=== PATIENT | male | born 1960 | race Caucasian/White ===

== ENCOUNTER 2016-10-03 17:55 | Emergency (ER) | payer OTHER ==
[2016-10-03 18:22] VITALS: TEMP 98.1
[2016-10-03] MEDS ORDERED: LIDOCAINE VISCOUS 2% 15 ML CUP MUCOUS MEM STA (19:01)
[2016-10-03] MEDS ORDERED: HYDROmorphone 2 MG/ML 1 ML SYRINGE IM STA (19:01)
--- NOTE | 2016-10-03 19:07 | ED ---
General Adult HPI - General Chief complaint: Skin/Abscess/Foreign Body Stated complaint: hemorrhoids Time Seen by Provider: 10/03/16 18:38 Source: patient Mode of arrival: wheelchair Limitations: no limitations - History of Present Illness Initial comments: 56-year-old male patient presents to emergency department today for evaluation of hemorrhoids. Patient states that he has had hemorrhoids in the past however his symptoms worsen significantly on . Patient states that he has had alternate constipation and diarrhea as her result of his treatment for lung cancer. The patient states that he has been doing sitz bath and using Preparation H without relief of symptoms. Patient also takes oxycodone and acetaminophen without relief of pain. Patient denies any bleeding from hemorrhoids. He denies any fever, chills, abdominal pain, nausea, vomiting, hematuria, dysuria, urinary frequency or urgency. Patient is currently receiving obdivo treatment for lung cancer last dose was 09/22/2016. - Related Data Home Medications Medication Instructions Recorded Confirmed Acetaminophen Tab [Tylenol Tab] 1,000 mg PO Q8H PRN 10/03/16 10/03/16 Dexamethasone 4 mg PO BID 10/03/16 10/03/16 Docusate [Colace] 100 mg PO BID 10/03/16 10/03/16 Folic Acid 1 mg PO DAILY 10/03/16 10/03/16 Gabapentin [Neurontin] 100 mg PO TID 10/03/16 10/03/16 Memantine [Namenda] 10 mg PO BID 10/03/16 10/03/16 Morphine Sulfate ER [Ms Contin 100 mg PO Q12HR 10/03/16 10/03/16 100Mg] Multivitamins, Thera [Multivitamin 1 tab PO Q48H 10/03/16 10/03/16 (formulary)] Ondansetron [Zofran ODT] 4 mg PO Q8HR PRN 10/03/16 10/03/16 Prochlorperazine [Compazine] 10 mg PO Q6H PRN 10/03/16 10/03/16 Varenicline [Chantix] 1 mg PO BID 10/03/16 10/03/16 buPROPion XL [Wellbutrin Xl] 300 mg PO DAILY 10/03/16 10/03/16 oxyCODONE HCL 20 mg PO Q4HR PRN 10/03/16 10/03/16 Previous Rx's Medication Instructions Recorded Hydrocortisone [Anusol-Hc] 1 applic RECTAL TID #30 gm 10/03/16 Polyethylene Glycol 3350 [Miralax] 17 gm PO DAILY #255 gm 10/03/16 Allergies Allergy/AdvReac Type Severity Reaction Status Date / Time No Known Allergies Allergy Verified 10/03/16 18:22 Review of Systems ROS Statement: Those systems with pertinent positive or pertinent negative responses have been documented in the HPI. ROS Other: All systems not noted in ROS Statement are negative. Past Medical History Past Medical History: Cancer Additional Past Medical History / Comment(s): hemorrhoids, lung cancer, chronic constipation History of Any Multi-Drug Resistant Organisms: None Reported Past Surgical History: Orthopedic Surgery Past Psychological History: No Psychological Hx Reported Smoking Status: Current every day smoker Past Alcohol Use History: None Reported Past Drug Use History: None Reported General Exam Limitations: no limitations General appearance: alert, in no apparent distress Eye exam: Present: normal appearance, PERRL, EOMI. Absent: scleral icterus, conjunctival injection, periorbital swelling ENT exam: Present: normal exam, mucous membranes moist Neck exam: Present: normal inspection. Absent: tenderness, meningismus, lymphadenopathy Respiratory exam: Present: decreased breath sounds. Absent: respiratory distress, wheezes, rales, rhonchi, stridor Cardiovascular Exam: Present: regular rate, normal rhythm, normal heart sounds. Absent: systolic murmur, diastolic murmur, rubs, gallop, clicks GI/Abdominal exam: Present: soft, normal bowel sounds. Absent: distended, tenderness, guarding, rebound, rigid Rectal exam: Present: normal rectal tone, hemorrhoids (Multiple large external hemorrhoids, appear to be thrombosed.) Extremities exam: Present: normal inspection, full ROM, normal capillary refill. Absent: tenderness, pedal edema, joint swelling, calf tenderness Back exam: Present: normal inspection Neurological exam: Present: alert, oriented X3, CN II-XII intact Psychiatric exam: Present: normal affect, normal mood Skin exam: Present: warm, dry, intact, normal color. Absent: rash Course Vital Signs 10/03/16 18:18 Temperature 98.1 F Pulse Rate 94 Respiratory 20 Rate Blood Pressure 120/83 O2 Sat by Pulse 99 Oximetry Medical Decision Making - Medical Decision Making 56-year-old male patient presented to emergency department today for evaluation of hemorrhoids. Physical exam does reveal multiple large external thrombosed hemorrhoids. My attending Dr. Gómez did come and evaluate patient. At this time it is recommended patient follows up as soon as possible with General surgery for evaluation for possible surgical management of hemorrhoids. Did discuss dietary changes and [id number] medications at great length with the patient. Patient will be given IM Dilaudid here for pain. We'll also discharge patient with a prescription for MiraLAX and Anusol cream. Discussed sitz baths. Patient will be given a referral to Dr. Brice. Patient instructed to return for any new, worsening, or concerning symptoms. Patient verbalizes understanding and agrees this plan. Disposition Clinical Impression: Hemorrhoids, external, thrombosed Disposition: HOME SELF-CARE Condition: Good Instructions: Thrombosed Hemorrhoid (ED) Additional Instructions: Do sitz baths at least 3 times per day. Use [id number] Tucks pads and Preparation H. Continue pain medications. Use MiraLAX and Colace for stool softeners. Increase fruits and vegetables as well as water and your diet. Call Tuesday morning to make an appointment with Gen. surgery for evaluation of the hemorrhoids. Return immediately for any new, worsening, or concerning symptoms. Prescriptions: Hydrocortisone [Anusol-Hc] 1 applic RECTAL TID #30 gm Polyethylene Glycol 3350 [Miralax] 17 gm PO DAILY #255 gm Referrals: Marck Doan MD [Primary Care Provider] - 1-2 days Carlos Brice MD [Medical Doctor] - 1-2 days Time of Disposition: 19:07
[2016-10-03 19:33] VITALS: BP 128/70; PULSE 74; RESP 16
== END 2016-10-03 19:32 | disposition home or self-care (01) ==
LOC: EC 17:55
DX: K64.5 Perianal venous thrombosis (principal); C34.90 Malignant neoplasm of unspecified part of unspecified bronchus or lung; K59.09 Other constipation; R19.7 Diarrhea, unspecified; F17.200 Nicotine dependence, unspecified, uncomplicated; Z79.52 Long term (current) use of systemic steroids; Z79.899 Other long term (current) drug therapy
CPT/HCPCS: 99282; 96372; J1170

== ENCOUNTER → 2016-10-08 | Outpatient (CLI) | payer OTHER ==
--- NOTE | 2016-10-08 14:47 | NM ---
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 History of left femur fracture and surgery 1989. History of bilateral arm pain per patient. Delayed whole-body scanning was performed following the injection of 24.7 mCi Tc 99m MDP. Images acq uired 3 hours post injection. Whole body images are acquired as well as spot images of the thorax abd omen and pelvis. FINDINGS: There is no suspicious scintigraphic evidence of abnormal radiotracer uptake to suggest metastatic di sease to the bone or other osseous abnormality. Normal excretion in bladder is noted. No suspicious u ptake is seen at level of the shoulders. IMPRESSION: As above
== END | disposition home or self-care (01) ==
LOC: RADNMMAIN 10:08
PROVIDERS: ATTEND Family Medicine
DX: C34.90 Malignant neoplasm of unspecified part of unspecified bronchus or lung (principal); M25.519 Pain in unspecified shoulder
CPT/HCPCS: 78306; A9503

== ENCOUNTER 2016-10-30 20:59 | Inpatient (IN) | payer OTHER ==
[2016-10-30] MEDS ORDERED: diphenhydrAMINE 50 MG/ML 1 ML VIAL IVP STA (21:08)
[2016-10-30] MEDS ORDERED: HYDROmorphone 2 MG/ML 1 ML SYRINGE IVP STA ×2 (21:08→22:21)
[2016-10-30] MEDS ORDERED: ONDANSETRON 4 MG/2 ML VIAL IVP STA (21:08)
[2016-10-30] MEDS ORDERED: SODIUM CHLORIDE 0.9% 500 ML IV STA (21:08)
[2016-10-30] MEDS ORDERED: DIAZEPAM 5 MG/ML 2 ML SYRINGE IVP STA (21:08)
[2016-10-30] MEDS ORDERED: SODIUM CHLORIDE 0.9% 1,000 ML IV STA ×2 (21:08→22:51)
--- NOTE | 2016-10-30 21:10 | ED ---
General Adult HPI - General Stated complaint: Weakness Time Seen by Provider: 10/30/16 21:04 Source: RN notes reviewed, old records reviewed - History of Present Illness Initial comments: This is a 56-year-old male to ER for reevaluation. This patient presents the ER for evaluation of generalized body pain severe pain. Patient takes morphine and Dilaudid at home history of lung cancer metastasis. - Related Data Home Medications Medication Instructions Recorded Confirmed Acetaminophen Tab [Tylenol Tab] 1,000 mg PO Q8H PRN 10/03/16 10/03/16 Dexamethasone 4 mg PO BID 10/03/16 10/03/16 Docusate [Colace] 100 mg PO BID 10/03/16 10/03/16 Folic Acid 1 mg PO DAILY 10/03/16 10/03/16 Gabapentin [Neurontin] 100 mg PO TID 10/03/16 10/03/16 Memantine [Namenda] 10 mg PO BID 10/03/16 10/03/16 Morphine Sulfate ER [Ms Contin 100 mg PO Q12HR 10/03/16 10/03/16 100Mg] Multivitamins, Thera [Multivitamin 1 tab PO Q48H 10/03/16 10/03/16 (formulary)] Ondansetron [Zofran ODT] 4 mg PO Q8HR PRN 10/03/16 10/03/16 Prochlorperazine [Compazine] 10 mg PO Q6H PRN 10/03/16 10/03/16 Varenicline [Chantix] 1 mg PO BID 10/03/16 10/03/16 buPROPion XL [Wellbutrin Xl] 300 mg PO DAILY 10/03/16 10/03/16 oxyCODONE HCL 20 mg PO Q4HR PRN 10/03/16 10/03/16 Previous Rx's Medication Instructions Recorded Hydrocortisone [Anusol-Hc] 1 applic RECTAL TID #30 gm 10/03/16 Polyethylene Glycol 3350 [Miralax] 17 gm PO DAILY #255 gm 10/03/16 Allergies Allergy/AdvReac Type Severity Reaction Status Date / Time No Known Allergies Allergy Verified 10/03/16 18:22 Review of Systems ROS Statement: Those systems with pertinent positive or pertinent negative responses have been documented in the HPI. ROS Other: All systems not noted in ROS Statement are negative. Past Medical History Past Medical History: Cancer Additional Past Medical History / Comment(s): hemorrhoids, lung cancer, chronic constipation History of Any Multi-Drug Resistant Organisms: None Reported Past Surgical History: Orthopedic Surgery Past Psychological History: No Psychological Hx Reported Smoking Status: Current every day smoker Past Alcohol Use History: None Reported Past Drug Use History: None Reported General Exam General appearance: alert, in no apparent distress Head exam: Present: atraumatic, normocephalic, normal inspection Eye exam: Present: normal appearance, PERRL, EOMI. Absent: scleral icterus, conjunctival injection, periorbital swelling ENT exam: Present: normal exam, mucous membranes moist Neck exam: Present: normal inspection. Absent: tenderness, meningismus, lymphadenopathy Respiratory exam: Present: normal lung sounds bilaterally. Absent: respiratory distress, wheezes, rales, rhonchi, stridor Cardiovascular Exam: Present: regular rate, normal rhythm, normal heart sounds. Absent: systolic murmur, diastolic murmur, rubs, gallop, clicks GI/Abdominal exam: Present: soft, normal bowel sounds. Absent: distended, tenderness, guarding, rebound, rigid Extremities exam: Present: normal inspection, full ROM, normal capillary refill. Absent: tenderness, pedal edema, joint swelling, calf tenderness Back exam: Present: normal inspection Neurological exam: Present: alert, oriented X3, CN II-XII intact Psychiatric exam: Present: normal affect, normal mood Skin exam: Present: warm, dry, intact, normal color. Absent: rash Course Vital Signs 10/30/16 10/30/16 10/30/16 21:07 21:38 22:07 Temperature 98.4 F 98.2 F Pulse Rate 82 80 78 Respiratory 18 18 18 Rate Blood Pressure 133/76 139/76 147/86 O2 Sat by Pulse 100 100 100 Oximetry 10/30/16 22:40 Temperature Pulse Rate 81 Respiratory 18 Rate Blood Pressure 156/90 O2 Sat by Pulse 100 Oximetry - Reevaluation(s) Reevaluation #1: 10/30/16 22:48 Pain is unable to be controlled here in the emergency room EKG Findings - EKG Comments: EKG Findings:: EKG shows normal sinus rhythm of 81, MN 144, QRS 92, QTc 476 Medical Decision Making - Medical Decision Making 56-year-old year with severe pain, cancer related pain, severe weakness dehydration, patient will be admitted for rehydration pain control - Lab Data Result diagrams: 10/30/16 21:00 10/30/16 21:00 Lab Results 10/30/16 10/30/16 10/30/16 Range/Units 21:00 21:00 21:00 WBC 8.7 (3.8-10.6) k/uL RBC 3.46 L (4.30-5.90) m/uL Hgb 10.4 L (13.0-17.5) gm/dL Hct 32.0 L (39.0-53.0) % MCV 92.5 (80.0-100.0) fL MCH 30.0 (25.0-35.0) pg MCHC 32.4 (31.0-37.0) g/dL RDW 13.8 (11.5-15.5) % Plt Count 507 H (150-450) k/uL Neutrophils % 63 % Lymphocytes % 23 % Monocytes % 8 % Eosinophils % 2 % Basophils % 0 % Neutrophils # 5.5 (1.3-7.7) k/uL Lymphocytes # 2.0 (1.0-4.8) k/uL Monocytes # 0.7 (0-1.0) k/uL Eosinophils # 0.2 (0-0.7) k/uL Basophils # 0.0 (0-0.2) k/uL PT (9.0-12.0) sec INR (<1.2) APTT (22.0-30.0) sec Sodium 134 L (137-145) mmol/L Potassium 4.0 (3.5-5.1) mmol/L Chloride 104 (98-107) mmol/L Carbon Dioxide 22 (22-30) mmol/L Anion Gap 8 mmol/L BUN 14 (9-20) mg/dL Creatinine 0.80 (0.66-1.25) mg/dL Est GFR (MDRD) Af Amer >60 (>60 ml/min/1.73 sqM) Est GFR (MDRD) Non-Af >60 (>60 ml/min/1.73 sqM) Glucose 86 (74-99) mg/dL Plasma Lactic Acid Kee (0.7-2.0) mmol/L Calcium 9.1 (8.4-10.2) mg/dL Phosphorus 3.2 (2.5-4.5) mg/dL Magnesium 1.7 (1.6-2.3) mg/dL Total Bilirubin 0.3 (0.2-1.3) mg/dL AST 17 (17-59) U/L ALT 33 (21-72) U/L Alkaline Phosphatase 139 H (38-126) U/L Total Creatine Kinase 45 L (55-170) U/L CK-MB (CK-2) 1.0 (0.0-2.4) ng/mL CK-MB (CK-2) Rel Index 2.2 Troponin I <0.012 (0.000-0.034) ng/mL Total Protein 5.5 L (6.3-8.2) g/dL Albumin 2.7 L (3.5-5.0) g/dL 10/30/16 10/30/16 Range/Units 21:00 21:00 WBC (3.8-10.6) k/uL RBC (4.30-5.90) m/uL Hgb (13.0-17.5) gm/dL Hct (39.0-53.0) % MCV (80.0-100.0) fL MCH (25.0-35.0) pg MCHC (31.0-37.0) g/dL RDW (11.5-15.5) % Plt Count (150-450) k/uL Neutrophils % % Lymphocytes % % Monocytes % % Eosinophils % % Basophils % % Neutrophils # (1.3-7.7) k/uL Lymphocytes # (1.0-4.8) k/uL Monocytes # (0-1.0) k/uL Eosinophils # (0-0.7) k/uL Basophils # (0-0.2) k/uL PT 14.4 H (9.0-12.0) sec INR 1.5 H (<1.2) APTT 35.4 H (22.0-30.0) sec Sodium (137-145) mmol/L Potassium (3.5-5.1) mmol/L Chloride (98-107) mmol/L Carbon Dioxide (22-30) mmol/L Anion Gap mmol/L BUN (9-20) mg/dL Creatinine (0.66-1.25) mg/dL Est GFR (MDRD) Af Amer (>60 ml/min/1.73 sqM) Est GFR (MDRD) Non-Af (>60 ml/min/1.73 sqM) Glucose (74-99) mg/dL Plasma Lactic Acid Kee 1.2 (0.7-2.0) mmol/L Calcium (8.4-10.2) mg/dL Phosphorus (2.5-4.5) mg/dL Magnesium (1.6-2.3) mg/dL Total Bilirubin (0.2-1.3) mg/dL AST (17-59) U/L ALT (21-72) U/L Alkaline Phosphatase (38-126) U/L Total Creatine Kinase (55-170) U/L CK-MB (CK-2) (0.0-2.4) ng/mL CK-MB (CK-2) Rel Index Troponin I (0.000-0.034) ng/mL Total Protein (6.3-8.2) g/dL Albumin (3.5-5.0) g/dL - Radiology Data Radiology results: report reviewed (Chest x-ray is negative for acute disease), image reviewed Disposition Clinical Impression: Medication reaction, Chronic pain, Cancer associated pain Disposition: ADMITTED IP TO THIS HOSP Condition: Good Instructions: Chronic Pain (ED) Referrals: Marck Doan MD [Primary Care Provider] - 1-2 days
[2016-10-30 21:39] LABS: Basophils % (A) 0 %; CHCM 33.6; Eosinophils # (A) 0.2 k/uL (0-0.7); Eosinophils % (A) 2 %; HDW 2.77; HGB 10.4 gm/dL (13.0-17.5); Luc # (Auto) 0.31; Luc % (Auto) 4; Lymphocytes % (A) 23 %; MCHC 32.4 g/dL (31.0-37.0); MCV 92.5 fL (80.0-100.0); Mean Platelet Volume 7.3; Monocytes # (A) 0.7 k/uL (0-1.0); Monocytes % (A) 8 %; Neutrophils # (A) 5.5 k/uL (1.3-7.7); Neutrophils % (A) 63 %; RBC 3.46 m/uL (4.30-5.90); RDW 13.8 % (11.5-15.5); WBC 8.7 k/uL (3.8-10.6); WBC (Perox) 9.32
[2016-10-30 21:48] LABS: ALT 33 U/L (21-72); AST 17 U/L (17-59); Alkaline Phosphatase 139 U/L (38-126); Anion Gap 8 mmol/L; Blood Urea Nitrogen 14 mg/dL (9-20); Calcium 9.1 mg/dL (8.4-10.2); Carbon Dioxide 22 mmol/L (22-30); Chloride 104 mmol/L (98-107); Glucose 86 mg/dL (74-99); Magnesium 1.7 mg/dL (1.6-2.3); Non-African American GFR(MDRD) >60 (>60 ml/min/1.73 sqM); Phosphorous 3.2 mg/dL (2.5-4.5); Sodium 134 mmol/L (137-145); Total Bilirubin 0.3 mg/dL (0.2-1.3); Total Protein 5.5 g/dL (6.3-8.2)
[2016-10-30 21:54] LABS: INR 1.5 (<1.2); Partial Thromboplastin Time 35.4 sec (22.0-30.0); Prothrombin Time 14.4 sec (9.0-12.0)
[2016-10-30 21:58] LABS: Creatine Kinase 45 U/L (55-170)
--- NOTE | 2016-10-30 22:05 | XR ---
EXAMINATION TYPE: XR chest 2V DATE OF EXAM: 10/30/2016 COMPARISON: NONE HISTORY: History of lung cancer with new increased weakness. TECHNIQUE: Frontal and lateral views of the chest are obtained. FINDINGS: There is right subclavian central venous catheter with tip in SVC. There is chronic emphys ematous change with left upper lobe masslike consolidation or neoplasm. Right lung is clear. No pleur al effusion or pneumothorax is present bilaterally. The cardiac silhouette size is within normal motta its. The osseous structures are intact. IMPRESSION: Chronic emphysematous change with left upper lobe masslike consolidation or neoplasm. Co rrelation with recent outside CT or chest CT is advised.
[2016-10-30 22:11] LABS: Troponin I <0.012 ng/mL (0.000-0.034)
[2016-10-30] MEDS ORDERED: KETOROLAC 30 MG/ML 1 ML VIAL IVP STA (22:21)
[2016-10-30] MEDS ORDERED: SODIUM CHLORIDE 0.9% 1,000 ML IV ONE (22:48)
[2016-10-30] MEDS ORDERED: DIAZEPAM 5 MG/ML 2 ML SYRINGE IVP PRN (22:48)
[2016-10-30] MEDS ORDERED: DEXTROSE 5%-0.45% NACL 1,000 ML IV ONE (22:50)
[2016-10-30 22:52] LABS: Appearance,Urine Cloudy (Clear); Bilirubin,Urine Negative (Negative); Glucose,Urine (UA) Negative (Negative); Ketones,Urine Trace (Negative); Leukocyte Esterase,Urine Large (Negative); Mucus,Urine Rare /hpf; Nitrite,Urine Negative (Negative); Particle Count 3875; Protein,Urine 1+ (Negative); RBC,Urine 12 /hpf (0-5); Specific Gravity,Urine 1.012 (1.001-1.035); UA Billing (MACRO vs. MICRO) MICRO; Urobilinogen,Urine <2.0 mg/dL (<2.0); WBC,Urine >182 /hpf (0-5)
[2016-10-31 01:35] VITALS: BMI 22.6
[2016-10-31] MEDS ORDERED: POLYETHYLENE GLYCOL 3350 17 GM POWD.PACK PO PRN (02:44)
[2016-10-31] MEDS: ACETAMINOPHEN IV (For NPO) 1,000 MG in EMPTY BAG 1 BAG IVPB SCH ×3 (03:41→12:42)
[2016-10-31] MEDS ORDERED: PROCHLORPERAZINE 10 MG TAB PO PRN (09:00)
[2016-10-31] MEDS: GABAPENTIN 100 MG CAP PO SCH ×3 (09:30→23:23)
[2016-10-31] MEDS: MEMANTINE 10 MG TAB PO SCH ×2 (09:30→21:58)
[2016-10-31] MEDS: DOCUSATE 100 MG CAP PO SCH (09:30)
[2016-10-31] MEDS: FOLIC ACID 1 MG TAB PO SCH (09:30)
[2016-10-31] MEDS: MULTIVITAMINS, THERA 1 EACH TAB PO SCH (09:30)
[2016-10-31] MEDS: DEXAMETHASONE 4 MG TAB PO SCH ×2 (09:31→21:58)
[2016-10-31] MEDS: buPROPion XL 300 MG TAB.ER.24H PO SCH (09:31)
[2016-10-31] MEDS: MORPHINE SULFATE ER 100 MG TABLET PO SCH ×2 (09:39→21:57)
[2016-10-31] MEDS: ENOXAPARIN 40 MG/0.4 ML SYRINGE SQ SCH (10:24)
[2016-10-31] MEDS: HYDROmorphone 2 MG/ML 1 ML SYRINGE IVP PRN (12:21)
[2016-10-31] MEDS: IPRATROPIUM-ALBUTEROL 3 ML NEB INHALATION SCH ×2 (15:57→19:42)
[2016-10-31] MEDS: methylPREDNISolone SOD SUCCI 125 MG/2 ML VIAL IV SCH ×2 (16:50→23:16)
[2016-10-31] MEDS: INSULIN LISPRO (humaLOG) 300 UNIT/3 ML VIAL SQ SCH ×2 (17:03→23:22)
[2016-10-31] MEDS: SYMBICORT 160-4.5 MCG INHALER INHALATION SCH (19:42)
[2016-10-31 19:58] LABS: Glucose,Whole Blood 226 mg/dL (75-99)
[2016-10-31] MEDS: NAPROXEN 250 MG TAB PO SCH (21:58)
[2016-11-01] MEDS: methylPREDNISolone SOD SUCCI 125 MG/2 ML VIAL IV SCH ×3 (05:43→17:42)
[2016-11-01 07:14] LABS: Basophils % (A) 0 %; CH 29.6; CHCM 31.4; Eosinophils % (A) 0 %; HCT 32.4 % (39.0-53.0); HGB 10.3 gm/dL (13.0-17.5); Hypochromasia Slight; Luc # (Auto) 0.07; Luc % (Auto) 1; Lymphocytes # (A) 1.2 k/uL (1.0-4.8); Lymphocytes % (A) 17 %; MCHC 31.8 g/dL (31.0-37.0); MCV 94.4 fL (80.0-100.0); Mean Platelet Volume 6.9; Monocytes # (A) 0.1 k/uL (0-1.0); Monocytes % (A) 2 %; Neutrophils # (A) 6.1 k/uL (1.3-7.7); Neutrophils % (A) 81 %; RBC 3.43 m/uL (4.30-5.90); RDW 13.4 % (11.5-15.5); WBC 7.5 k/uL (3.8-10.6); WBC (Perox) 7.74
[2016-11-01 07:30] LABS: Anion Gap 6 mmol/L; Blood Urea Nitrogen 10 mg/dL (9-20); Calcium 8.9 mg/dL (8.4-10.2); Carbon Dioxide 24 mmol/L (22-30); Chloride 108 mmol/L (98-107); Glucose 150 mg/dL (74-99); Non-African American GFR(MDRD) >60 (>60 ml/min/1.73 sqM); Potassium 4.2 mmol/L (3.5-5.1); Sodium 138 mmol/L (137-145)
[2016-11-01 07:32] LABS: Glucose,Whole Blood 210 mg/dL (75-99)
--- NOTE | 2016-11-01 07:40 | CONS ---
CONSULTATION DATE OF CONSULTATION: October 31, 2016. REASON FOR CONSULTATION: Lung cancer. CHIEF COMPLAINT: Generalized pain. HISTORY OF PRESENT ILLNESS: Ray is a very pleasant, 56 years old gentleman, very well known to our office. He has been under the care of Dr. Terrazas. Actually he started seeing Dr. Terrazas on September 17, 2016. He was diagnosed with adenocarcinoma of the lung on January 29, 2016 at [facility] in [facility] after presenting with unexplained hoarseness. He was found to have a spiculated 4.1 cm mass in the left upper lobe with small mediastinal lymphadenopathies and he was found to have metastatic disease to the brain. He was initially treated with stereotactic radiation therapy to the brain on 2 separate occasions. Then, he received 6 cycles of chemotherapy with carboplatin and Alimta, completed on 06/16/2016. The patient subsequently had further disease progression and he was started on systemic treatment with . He received four infusions in [facility] before he transferred his care to Dr. Terrazas treatment was resumed and he has had 2 treatments in our office. Last treatment with Opdivo was on 10/29/2006. The patient presented to the emergency department yesterday, with generalized pain which he rates as a 10 out of 10 in severity in his neck across his chest and also bilateral hip pain and generalized bone aches. He did have a bone scan about 2 weeks ago or 3 weeks ago in the outpatient setting, which was negative for metastatic disease. Apparently, the patient has not been taking his Dilaudid at home as prescribed, after my discussion with his mother and his father in law. The patient ended up being admitted to the hospital for further management. As stated, he has generalized pain and generalized weakness. He has significant pain in the cervical spine in his neck radiating across his chest, back, across his shoulder bilaterally and also over the last week he has experienced some incontinence in his urine and also has had significant constipation with no bowel movement for about a week. There is no fever or chills. He has lost 6-8 pounds over the last 3 months or so. His appetite is down. No significant cough. No rash. No numbness or tingling. No melena, hematochezia, hematuria, hemoptysis, hematemesis or epistaxis. 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 He had a port placement in the past and oral surgery. PAST FAMILY HISTORY: For malignancy. His father had lung cancer. Paternal grandfather had gastric stomach cancer. SOCIAL HISTORY: He is an everyday smoker, 3 pack of cigarettes daily. No alcohol abuse or substance abuse. ALLERGIES: He has no known drug allergies. HOME MEDICATIONS: 1. Tylenol as needed. 2. Bupropion 300 mg every 12 hours. 3. Dilaudid 4 mg tablet every 2 hours. 4. Colace Docusate 100 mg b.i.d. 5. Gabapentin 100 mg t.i.d. 6. Namenda 10 mg b.i.d. 7. MS Contin 100 mg twice a day. 8. Valium 5 mg as needed. REVIEW OF SYSTEMS: As stated above in the history of present illness. PHYSICAL EXAMINATION: He is alert, oriented times three. He does not appear to be in distress at this point in time. His vital signs on temperature 97.5. Afebrile. Pulse 70 and regular. Respirations 16. Blood pressure 126/75. HEENT: Normocephalic, atraumatic. No obvious icterus. NECK: Supple. Equal expansion bilaterally. LUNGS: Clear to auscultation and percussion. Heart is regular rhythm. ABDOMEN: Soft. No obvious organomegaly or mass. Bowel sounds present. EXTREMITIES: No edema. Skin no significant bruise or petechia. Hepatic: No peripheral enlarged cervical, supraclavicular nodes. MUSCULOSKELETAL: He has percussion tenderness in the cervical spine and mid thoracic spine. LABORATORY DATA: WBC 8.7, hemoglobin 10.4, hematocrit 32.0, platelets are 507. INR is 1.5, PTT 35.4, sodium 134, potassium 4.0, chloride 104, CO2 is 22, BUN is 14, creatinine 0.8, calcium is 9.1, AST 17, and ALT is 33. Alkaline phosphatase is 139. IMPRESSION: 1. Metastatic adenocarcinoma of the lung was diagnostic and therapeutic as stated above. 2. Generalized bone pain. Apparently, the patient has not been taking Dilaudid at home as prescribed over the last few days. 3. Worsening cervical spine, neck pain radiating across his shoulder and associated with urinary incontinence. RECOMMENDATION: 1. I agree with admitting the patient to the hospital for pain management. 2. He already started on Decadron and on steroid and I would recommend to continue with that. 3. We will add NSAID for his pain regimen which include MS Contin and Dilaudid. 4. Consider obtaining an MRI of his cervical spine for further evaluation of his neck pain of his worsening neck pain. 5. Based on his requirement for Dilaudid as needed, then may consider increasing the dose of MS Contin. 6. Continue stool softener and laxative to avoid narcotic induced constipation. The above was discussed in detail with the patient and also discussed his care with his mother and his stepfather at bedside. Thank you very much for asking me to participate in this nice gentleman's. FLORENCIO / KEVIN: [id number] /
[2016-11-01 07:52] LABS: Hemoglobin A1C 6.1 % (4.2-6.1)
[2016-11-01] MEDS: SYMBICORT 160-4.5 MCG INHALER INHALATION SCH (08:10)
[2016-11-01] MEDS: IPRATROPIUM-ALBUTEROL 3 ML NEB INHALATION SCH ×2 (08:10→11:31)
[2016-11-01] MEDS: INSULIN LISPRO (humaLOG) 300 UNIT/3 ML VIAL SQ SCH ×4 (08:26→21:00)
[2016-11-01] MEDS: ENOXAPARIN 40 MG/0.4 ML SYRINGE SQ SCH (08:28)
[2016-11-01] MEDS: GABAPENTIN 100 MG CAP PO SCH ×3 (08:33→21:00)
[2016-11-01] MEDS: NAPROXEN 250 MG TAB PO SCH ×2 (08:33→21:00)
[2016-11-01] MEDS: DEXAMETHASONE 4 MG TAB PO SCH ×2 (08:33→21:00)
[2016-11-01] MEDS: MEMANTINE 10 MG TAB PO SCH ×2 (08:34→21:00)
[2016-11-01] MEDS: FOLIC ACID 1 MG TAB PO SCH (08:34)
[2016-11-01] MEDS: DOCUSATE 100 MG CAP PO SCH (08:34)
[2016-11-01] MEDS: MORPHINE SULFATE ER 100 MG TABLET PO SCH ×2 (08:34→21:00)
[2016-11-01] MEDS: buPROPion XL 300 MG TAB.ER.24H PO SCH (08:34)
--- NOTE | 2016-11-01 09:37 | HP ---
HISTORY AND PHYSICAL I am covering for Dr. Doan DATE OF SERVICE: 10/31/2016 CHIEF COMPLAINT: Weakness and severe pain. HISTORY OF PRESENT ILLNESS: This 56-year-old gentleman with past medical history of multiple medical problems including lung cancer, history of chronic constipation, history hemorrhoids being followed by Dr. Doan in the outpatient setting was apparently taking immunotherapy Hematology Oncology. The patient was taking MS Contin 100 mg p.o. b.i.d. At home the patient had severe pain in between the shoulder blades and the patient also had body pain as well. Because of increasing complaints, the patient came to [facility] and admitted for further evaluation and treatment. The pain could not be controlled in the emergency room. There is no history of fever, rigors. No history of headache, loss of consciousness or seizures. The chest x-ray done at the time of admission showed chronic inflammatory changes and the left upper lobe masslike consolidation. There is no history of fever. NO history of headache, loss of consciousness or seizures. Patient has shortness of breath with findings of bilateral rhonchi. PAST MEDICAL HISTORY: History of lung cancer, history of DJD, history of nicotine dependence, and constipation. MEDICATIONS: Prior to admission include: 1. MiraLAX 17 g daily. 2. Oxycodone 20 mg q.4h p.r.n. 3. Bupropion 300 mg. 4. Compazine 20 mg q.6. 5. Multivitamins 1 daily. 6. MS Contin 100 mg p.o. b.i.d. 7. Namenda 10 mg b.i.d. 8. Neurontin 100 mg p.o. t.i.d. 9. Folic acid 1 mg p.o. daily. 10.Colace 100 mg p.o. daily. 11.Dexamethasone 4 mg p.o. b.i.d. 12.Tylenol 1,000 q.8 p.r.n. ALLERGIES: None. FAMILY HISTORY: No heart disease or strokes in the family. SOCIAL HISTORY: History of smoking. No history of alcohol. REVIEW OF SYSTEMS: ENT: No diminished hearing or vision. CARDIOVASCULAR: No angina. RESPIRATORY: As mentioned earlier. GI: No nausea. : No dysuria. NERVOUS SYSTEM: No numbness or weakness. ALLERGY/IMMUNOLOGY: No asthma or hayfever. MUSCULOSKELETAL: As mentioned early. HEMATOLOGY: No history of anemia. ENDOCRINE: No history of diabetes, hypothyroidism. CONSTITUTIONAL: As mentioned earlier. DERMATOLOGY: Negative. RHEUMATOLOGY: Negative. PSYCHIATRY: As mentioned earlier. PHYSICAL EXAMINATION: Patient is alert and oriented x3. Pulse is 59, blood pressure 110/72, respiration 18, temperature 97.6, pulse ox 98% on room air. HEENT: Conjunctivae normal. Oral mucosa moist. NECK: No jugular venous distention. No carotid bruit. No lymph nodes. CARDIOVASCULAR: S1, S2. No S3, no S4. RESPIRATORY: Breath sounds diminished in the bases. A few scattered rhonchi. A few crackles also heard bilaterally. ABDOMEN: Soft, nontender. No mass palpable. No hepatosplenomegaly. LEGS: No edema. NERVOUS SYSTEM: Higher function as mentioned. Moves all four limbs. No focal motor deficit. LYMPHATIC: No lymphadenopathy in the neck, axillae or groin. SKIN: No rash, ulcer or bleeding. JOINT: No active deforming arthropathy. LABORATORY DATA: WBC 8.2, hemoglobin 10.4, INR 1.5, alk phos 139. UA noted, possibly UTI. ASSESSMENT: 1. Acute generalized aches and pains as well as bilateral shoulder pain secondary to malignancy with failure of outpatient treatment. 2. Acute urinary tract infection present on admission. 3. Anemia, normocytic, anemia of malignancy. 4. History of hemorrhoids. 5. Chronic constipation. 6. History of degenerative joint disease. 7. History of nicotine dependence. 8. Possible chronic obstructive pulmonary disease acute exacerbation. IMPRESSION: A 56-year-old gentleman presents with multiple complex medical issues, will monitor the patient closely. Continue the current medications, symptomatic treatment. I recommend to optimize bronchodilator treatment otherwise steroids. Pulmonary consultation: Hematology Oncology has been consulted. I would also recommend empiric antibiotics. Obtain cultures also. Otherwise prognosis guarded because of multiple complex medical issues and further recommendations to follow. See orders for details. DVT prophylaxis. Repeat labs will be ordered. MRI of the cervical spine has been ordered also by the Hematology Oncology. Prognosis guarded. MMODL / IJN: [id number] /
[2016-11-01 11:54] LABS: Glucose,Whole Blood 185 mg/dL (75-99)
[2016-11-01] MEDS ORDERED: KETOROLAC 30 MG/ML 1 ML VIAL IVP PRN (12:09)
[2016-11-01] MEDS ORDERED: KETOROLAC 30 MG/ML 1 ML VIAL IVP SCH (12:15)
[2016-11-01] MEDS: PANTOPRAZOLE 40 MG/10 ML VIAL IVP SCH (15:11)
[2016-11-01] MEDS: HYDROmorphone 2 MG/ML 1 ML SYRINGE IVP PRN ×2 (15:16→19:53)
[2016-11-01 16:07] LABS: Glucose,Whole Blood 152 mg/dL (75-99)
[2016-11-01] MEDS: SODIUM CHLORIDE 0.9% 1,000 ML IV SCH (17:37)
--- NOTE | 2016-11-01 18:19 | CONS ---
CONSULTATION Ray Luis is a 56-year-old male, who presented to the ED at [facility] with increasing pain. This was located on his right lower extremity but also in the interscapular area. He has a known history of lung cancer in the left upper lobe for which he has required radiation and chemotherapy. He does not complain of any shortness of breath. PAST MEDICAL HISTORY: Significant for a diagnosis of cancer of the lung with metastatic disease. He receives stereotactic radiation to the brain and 6 cycles of chemotherapy. He had been on Opdivo and seems to be doing fair. Patient denies a previous history of COPD but was told he might have COPD at this time. He has a history of anxiety. SOCIAL HISTORY: Patient smoked about a pack of cigarettes per day. He used to be a so. FAMILY HISTORY: Positive for lung cancer in his father. MEDICATIONS: Prior to admission were Valium, MS Contin, Namenda, gabapentin. Colace, Dilaudid. bupropion and Tylenol. The patient was not on any inhalers or on oxygen at home. PHYSICAL EXAMINATION: He was lying in bed. He was not in any respiratory distress. His blood pressure is 109/64, respiratory rate of 18, pulse rate is 77, temperature 97.8, O2 saturation on 2 L by nasal cannula is 99%. HEENT reveals pupils to be equal. No jugular venous distention. Chest with decreased breath sounds on the left upper zone with no wheezing. Cardiovascular system reveals an S1, S2. No S3, no S4. Abdomen is soft. There is no pedal edema. LABS: Reveal a white count of 7.5, hemoglobin of 10.3, glucose 210, sodium 138, potassium 4.2, chloride 108, bicarb 24. Chest x-ray shows evidence of left upper lobe mass or infiltrate. UA is consistent with UTI. IMPRESSION: 1. Cancer of the lung in the left upper lobe. 2. Doubt significant chronic obstructive pulmonary disease as patient is relatively asymptomatic. 3. Urinary tract infection. 4. Acute on chronic manifestation of pain which may be due to metastatic disease. At this point in time from a pulmonary standpoint, we will discontinue his bronchodilators, see if we can wean him off his oxygen, increase his activity level. Depending on how he does we should make further changes to his care. Continue GI and DVT prophylaxis. Antibiotics would not be required from a pulmonary standpoint but would continue them for his UTI. Steroids also would not be required from a pulmonary standpoint at this time but continue as it may be helping with his pain per Oncology. MMODL / IJN: [id number] /
--- NOTE | 2016-11-01 19:49 | PN ---
PROGRESS NOTE DATE OF SERVICE: November 01, 2016. CHIEF COMPLAINT: Neck pain. INTERVAL HISTORY: Milad is seen today as a followup. He feels better. He continues to have some neck pain, but a little better today. He is also constipated. No nausea or vomiting. No cough. No fever or chills. MEDICATIONS: Reviewed in his electronic medical record. PHYSICAL EXAMINATION: He is alert, oriented times three in no distress. His vital signs are temperature 97.8, afebrile, pulse 68 and regular, respiration 18, blood pressure 106/64. HEENT: Normocephalic, atraumatic. NECK: Supple. Chest equal expansion bilaterally. LUNGS: Clear to auscultation. Heart is regular rate and rhythm. ABDOMEN: Soft. No tenderness. Extremities revealed no significant edema. LABORATORY DATA: WBC of 7.5, hemoglobin 10.3, hematocrit 32.4, platelet 178. IMPRESSION: 1. Generalized musculoskeletal pain and in particular neck pain radiating across the shoulder. 2. Metastatic non-small cell lung carcinoma. He is currently on Opdivo therapy. 3. Narcotic induced constipation. RECOMMENDATION: 1. Continue current pain medication regimen. 2. Continue stool softener. May add laxative as well for his narcotic induced constipation. 3. Continue steroids. 4. Continue NSAIDs. 5. Awaiting MRI of the cervical spine. MMODL / IJN: [id number] /
[2016-11-01 20:06] LABS: Glucose,Whole Blood 183 mg/dL (75-99)
--- NOTE | 2016-11-01 22:58 | PN ---
PROGRESS NOTE DATE OF SERVICE: 11/01/2016 I am covering for Dr. Doan. INTERVAL HISTORY: This 56-year-old gentleman with a past medical history of recent adenocarcinoma of the lung with multiple METS being followed by Dr. Fuentes and Dr. Terrazas in the outpatient setting was admitted to the hospital with diffuse pain. The patient was given multiple pain management at this time. Diffuse bony metastatic pain, cancer pain was considered at this time. There is no history of fever, rigors or chills. No history of headache, loss of consciousness or seizures. The patient was short of breath yesterday but improved with steroids and bronchodilators. PAST MEDICAL HISTORY: Reviewed. REVIEW OF SYSTEMS: Cardio system: No angina. Respiratory system: As mentioned earlier. GI: No nausea or vomiting. : No dysuria. Central nervous system: No numbness, weakness. . MEDICATIONS ARE: Reviewed include. 1. Wellbutrin XL. 2. Rocephin 1 gm IV daily. 3. Hexadrol. 4. Lovenox. 5. Neurontin. 6. Dilaudid. 7. Humalog. 8. Namenda. 9. Solu-Medrol. 10.Multivitamins. 11.Naprosyn. 12.Oxy-IR. 13.Protonix. 14.Compazine. PHYSICAL EXAM: Patient is alert, oriented times two. Pulse 96, blood pressure ntd, respirations 18, temperature 98 degrees, pulse ox 98% on 2 L. HEENT: Conjunctivae normal. Oral mucosa moist. Neck is no jugular venous distention. No carotid bruit. No lymph node enlargement. Cardiovascular: S1, S2 muffled. No S3, no S4. Respiratory: Breath sounds diminished at the bases. A few scattered rhonchi and crackles. ABDOMEN: Soft, nontender. No mass palpable. Legs no edema. No swelling. Central nervous system higher functions as mentioned earlier. Moves all four limbs. No focal deficits. Lymphatics: No lymph nodes palpable in the neck, axillae or groin. SKIN: No ulcer, rash or bleeding. Movements are painful. LABORATORY DATA: At this time, WBC 7.2, hemoglobin 10.3. Accu-Cheks noted. ASSESSMENT: 1. Acute generalized aches and pains, status post bilateral shoulder pain secondary to malignancy with metastasis with failure of outpatient treatment. 2. Adenocarcinoma of the lung with mets on immunotherapy. 3. Acute urinary tract infection present on admission. 4. Chronic obstructive pulmonary disease acute exacerbation. 5. Anemia normocytic anemia of malignancy. 6. History of hemorrhoids. 7. Chronic constipation. 8. History of degenerative joint disease. 9. History of nicotine dependence. RECOMMENDATIONS AND DISCUSSION: In this 56 -year-old gentleman who presented with multiple complex medical issues, we will closely continue the patient. Continue symptomatic treatment. Continue the current medications. Optimize the bronchodilator treatment, otherwise continue the IV pain medication with Dilaudid and morphine. Solu-Medrol. Accu-Cheks a.c. and q.h.s. I would also recommend Ketoralac p.r.n. Guarded prognosis because of multiple complex medical issues. Further recommendations to follow MMARNOLDL / ARELIN: [id number] / MTDLeia
[2016-11-02] MEDS: methylPREDNISolone SOD SUCCI 125 MG/2 ML VIAL IV SCH ×4 (00:06→18:49)
[2016-11-02] MEDS: SODIUM CHLORIDE 0.9% 1,000 ML IV SCH ×3 (00:08→17:03)
[2016-11-02] MEDS: HYDROmorphone 2 MG/ML 1 ML SYRINGE IVP PRN ×6 (01:44→22:37)
[2016-11-02 06:55] LABS: Glucose,Whole Blood 124 mg/dL (75-99)
[2016-11-02 08:00] LABS: Basophils % (A) 0 %; CH 29.5; CHCM 31.3; Eosinophils % (A) 0 %; HCT 31.2 % (39.0-53.0); HDW 2.66; HGB 9.7 gm/dL (13.0-17.5); Hypochromasia Slight; Luc # (Auto) 0.16; Luc % (Auto) 1; Lymphocytes # (A) 1.1 k/uL (1.0-4.8); Lymphocytes % (A) 8 %; MCH 29.4 pg (25.0-35.0); MCHC 31.1 g/dL (31.0-37.0); MCV 94.4 fL (80.0-100.0); Mean Platelet Volume 6.7; Monocytes # (A) 0.6 k/uL (0-1.0); Monocytes % (A) 4 %; Neutrophils # (A) 12.1 k/uL (1.3-7.7); Neutrophils % (A) 87 %; RDW 13.9 % (11.5-15.5); WBC (Perox) 14.96
[2016-11-02 08:23] LABS: Anion Gap 5 mmol/L; Blood Urea Nitrogen 14 mg/dL (9-20); Carbon Dioxide 25 mmol/L (22-30); Chloride 107 mmol/L (98-107); Glucose 102 mg/dL (74-99); Non-African American GFR(MDRD) >60 (>60 ml/min/1.73 sqM); Potassium 4.5 mmol/L (3.5-5.1); Sodium 137 mmol/L (137-145)
[2016-11-02] MEDS: INSULIN LISPRO (humaLOG) 300 UNIT/3 ML VIAL SQ SCH ×4 (08:27→20:49)
[2016-11-02] MEDS: MORPHINE SULFATE ER 100 MG TABLET PO SCH ×2 (09:01→20:50)
[2016-11-02] MEDS: buPROPion XL 300 MG TAB.ER.24H PO SCH (10:27)
[2016-11-02] MEDS: DEXAMETHASONE 4 MG TAB PO SCH ×2 (10:27→20:51)
[2016-11-02] MEDS: FOLIC ACID 1 MG TAB PO SCH (10:28)
[2016-11-02] MEDS: DOCUSATE 100 MG CAP PO SCH (10:28)
[2016-11-02] MEDS: ENOXAPARIN 40 MG/0.4 ML SYRINGE SQ SCH (10:28)
[2016-11-02] MEDS: NAPROXEN 250 MG TAB PO SCH ×2 (10:29→20:50)
[2016-11-02] MEDS: GABAPENTIN 100 MG CAP PO SCH ×3 (10:29→22:37)
[2016-11-02] MEDS: MEMANTINE 10 MG TAB PO SCH ×2 (10:29→20:50)
[2016-11-02] MEDS: PANTOPRAZOLE 40 MG/10 ML VIAL IVP SCH (10:31)
[2016-11-02 11:18] LABS: Glucose,Whole Blood 125 mg/dL (75-99)
[2016-11-02] MEDS ORDERED: MULTIVITAMINS, THERA 1 EACH TAB PO SCH (12:00)
[2016-11-02] MEDS: POLYETHYLENE GLYCOL 3350 17 GM POWD.PACK PO SCH (12:24)
[2016-11-02] MEDS: MULTIVITAMINS, THERA 1 EACH TAB PO SCH (13:22)
--- NOTE | 2016-11-02 14:17 | PN ---
PROGRESS NOTE DATE OF SERVICE: 11/02/2016 The patient has been hemodynamically stable. He is not short of breath. His pain is under fair control. PHYSICAL EXAMINATION: Respiratory rate is 14, pulse rate of 79, temperature 96.7, O2 sat on 2 L by nasal cannula is 99%. HEENT is unremarkable. Chest with occasional rhonchi. Cardiovascular system was S1, S2. Abdomen is soft. There is no edema. IMPRESSION: 1. Left upper lobe lung cancer. 2. Urinary tract infection. 3. Chronic pain with exacerbation. Continue pain control. Continue antibiotics, steroids. Increases his activity level. Hold off on bronchodilators. Depending on how he does, we shall make further changes to his care. MMODL / IJN: [id number] /
[2016-11-02 17:32] LABS: Glucose,Whole Blood 160 mg/dL (75-99)
[2016-11-02] MEDS ORDERED: MAGNESIUM HYDROXIDE 2,400 MG/10 ML CUP PO PRN (18:06)
--- NOTE | 2016-11-02 19:27 | MR ---
EXAMINATION TYPE: MR cervical spine wo/w con DATE OF EXAM: 11/02/2016 COMPARISON: Bone scan 10/08/2016 HISTORY: NECK AND SHOULDER PAIN TECHNIQUE: Multiplanar, multisequence images of the cervical spine were acquired utilizing 6 mL intravenous Gada vist gadolinium contrast. Diffusion weighted imaging was performed. There is motion on the exam which could limit evaluation. C2-C3: Lateral extension of endplate disc complex results in some mild bilateral foraminal encroachme nt. No significant central stenosis. Mild anterior mass effect on the thecal sac, broad-based posteri or disc bulge is noted. C3-C4: Posterior extension of endplate disc complex causes mild anterior mass effect on the thecal sa c. Circumferential extension of endplate disc complex results in foraminal encroachment which is mild bilaterally. No significant central stenosis. C4-C5: Posterior extension of endplate disc complex causes mild anterior mass effect on the thecal sa c, there is lateral extension causing some minimal left-sided foraminal encroachment, no significant central stenosis. C5-C6: Suspect there is some abnormal increased signal within the cervical cord at this level towards the right anteriorly and possibly posteriorly on the left on axial T2-weighted sequences. This is th ought to be confirmed on sagittal image 9 T2-weighted sequence, sagittal image 7. Posterior extension of endplate disc complex causes anterior mass effect on the thecal sac, there is moderate central ca nal stenosis. Lateral extension of endplate disc complex causes bilateral foraminal encroachment. C6-C7: Posterior extension of endplate disc complex causes mild anterior mass effect on the thecal sa c. There is bilateral foraminal encroachment. Lateral extension of endplate disc complex is noted jonh aterally. C7-T1: No evidence for degenerative disc disease. No disc bulge/herniation or protrusion. No Canal stenosis. Foramina are patent bilaterally. Cervical segments are intact. There is normal alignment. Craniovertebral junction relationships are within normal limits. There is multilevel spondylosis with endplate discogenic marrow signal change, loss of disc height and signal present at the intervertebral levels. No abnormal enhancement followi ng contrast administration. IMPRESSION: Multilevel degenerative disc disease and foraminal encroachment. Suspect some possible gliosis within the cervical cord at C5-6 possibly due to local mass effect. There is motion on the exam which may l imit evaluation
[2016-11-02 20:25] LABS: Glucose,Whole Blood 133 mg/dL (75-99)
[2016-11-03] MEDS: methylPREDNISolone SOD SUCCI 125 MG/2 ML VIAL IV SCH ×3 (00:11→13:07)
[2016-11-03 06:55] LABS: Glucose,Whole Blood 132 mg/dL (75-99)
[2016-11-03] MEDS ORDERED: PANTOPRAZOLE 40 MG TABLET PO SCH (07:30)
[2016-11-03 07:32] LABS: Basophils % (A) 0 %; CH 29.6; CHCM 31.9; Eosinophils % (A) 0 %; HCT 30.7 % (39.0-53.0); HDW 2.66; HGB 9.9 gm/dL (13.0-17.5); Hypochromasia Slight; Luc # (Auto) 0.15; Luc % (Auto) 2; Lymphocytes # (A) 1.1 k/uL (1.0-4.8); Lymphocytes % (A) 10 %; MCH 29.9 pg (25.0-35.0); MCHC 32.1 g/dL (31.0-37.0); MCV 93.1 fL (80.0-100.0); Mean Platelet Volume 6.4; Monocytes # (A) 0.6 k/uL (0-1.0); Monocytes % (A) 6 %; Neutrophils # (A) 8.3 k/uL (1.3-7.7); Neutrophils % (A) 82 %; RDW 13.9 % (11.5-15.5); WBC 10.1 k/uL (3.8-10.6); WBC (Perox) 10.65
[2016-11-03 07:41] LABS: Anion Gap 5 mmol/L; Blood Urea Nitrogen 14 mg/dL (9-20); Calcium 8.6 mg/dL (8.4-10.2); Carbon Dioxide 25 mmol/L (22-30); Chloride 106 mmol/L (98-107); Glucose 113 mg/dL (74-99); Non-African American GFR(MDRD) >60 (>60 ml/min/1.73 sqM); Potassium 4.2 mmol/L (3.5-5.1); Sodium 136 mmol/L (137-145)
[2016-11-03] MEDS: INSULIN LISPRO (humaLOG) 300 UNIT/3 ML VIAL SQ SCH ×2 (08:17→13:06)
[2016-11-03] MEDS: SODIUM CHLORIDE 0.9% 1,000 ML IV SCH (08:21)
[2016-11-03] MEDS: buPROPion XL 300 MG TAB.ER.24H PO SCH (08:38)
[2016-11-03] MEDS: DEXAMETHASONE 4 MG TAB PO SCH (08:40)
[2016-11-03] MEDS: FOLIC ACID 1 MG TAB PO SCH (08:43)
[2016-11-03] MEDS: DOCUSATE 100 MG CAP PO SCH (08:43)
[2016-11-03] MEDS: GABAPENTIN 100 MG CAP PO SCH ×2 (08:44→15:32)
[2016-11-03] MEDS: MORPHINE SULFATE ER 100 MG TABLET PO SCH (08:45)
[2016-11-03] MEDS: MEMANTINE 10 MG TAB PO SCH (08:45)
[2016-11-03] MEDS: NAPROXEN 250 MG TAB PO SCH (08:46)
[2016-11-03] MEDS: POLYETHYLENE GLYCOL 3350 17 GM POWD.PACK PO SCH (08:47)
[2016-11-03] MEDS: ENOXAPARIN 40 MG/0.4 ML SYRINGE SQ SCH (08:47)
[2016-11-03] MEDS: HYDROmorphone 2 MG/ML 1 ML SYRINGE IVP PRN (11:19)
[2016-11-03 11:50] LABS: Glucose,Whole Blood 155 mg/dL (75-99)
[2016-11-03 15:02] VITALS: BP 143/86; PULSE 68; RESP 16; TEMP 97.7
--- NOTE | 2016-11-04 16:20 | PN ---
PROGRESS NOTE DATE OF SERVICE: 11/03/2016 HISTORY OF PRESENT ILLNESS: Patient is a 56-year-old male who came into the hospital with increased problems with pain with a known history of lung cancer to the left upper lobe where he has been getting radiation chemotherapy and problems with right lower extremity pain also. Patient seen today. He states that he is doing somewhat better. He still has some problems with shoulder pain and shortness of breath and has been having some problems off and on with constipation. He still has some noted inspiratory wheezes. He is uncertain if he will be discharged today. His only real shortness of breath is with activity. Vital signs show temperature of 97.7, heart rate 68, respiratory rate 16, blood pressure is 143/86, oxygen saturation was 100%. He uses 2 L off and on. LABS: Showed WBC 10.1, hemoglobin 9.9, hematocrit 30.7, platelet count 677. Sodium is 136, potassium 4.2, chloride 106, CO2 is 25, BUN 14, creatinine is 0.62, glucose was 113, calcium was 8.6. Blood culture showed no growth after 48 hours. Urine showed no growth and sputum was felt to be contaminated with oral delio. He did have a cervical spine MRI that showed multilevel degenerative disc disease and foraminal encroachment with possible gliosis within the cervical cord at C5 and 6, possibly due to local mass- effect. GENERAL: He is a 56-year-old male who appears in no acute distress at this time. HEENT: Head is atraumatic, normocephalic. Pupils are reactive. Neck is supple. Trachea is midline. Lungs sounds slightly coarse with some inspiratory wheeze. CARDIOVASCULAR: S1, S2 is heard, regular. Abdomen is soft. Extremities with no significant edema. NEUROLOGIC: He is awake, alert. IMPRESSION: 1. Left upper lobe lung cancer. 2. Urinary tract infection. 3. Chronic pain exacerbation. PLAN: Patient to continue with his medications as ordered and can continue to increase activity as tolerated. Patient followup with Dr. Samara Pinzon in 1 weeks' time. MMODL / IJN: [id number] /
--- NOTE | 2016-11-09 14:19 | DS ---
DISCHARGE SUMMARY CHIEF COMPLAINT: Intractable pain from metastatic CA of the lung. HISTORY OF PRESENT ILLNESS AND PHYSICAL EXAM: Details of this man's history and physical can be found in the initial workup. LABORATORY STUDIES: While he was in the hospital he had laboratory studies, details which can be found in the laboratory section of the chart. COURSE IN THE HOSPITAL: After admission, he was placed on bed rest, started on intravenous fluid and analgesics. He usually did well on morphine at home. In the hospital, he seemed to not have a great deal of difficulty with pain. He remained afebrile. He had no particular problems with shortness of breath or eating. He was doing well and it was felt that he could go home on the and he will follow up in our office or with his oncologist as he wishes. FINAL DIAGNOSIS: Intractable pain secondary to cancer of the lung. OPERATION: None. CONSULTATIONS: None. He is improved. MMODL / ARELIN: [id number] /
== END 2016-11-03 16:45 | disposition home health service (06) | DRG 948 ==
LOC: EC 20:59 → 5MS5E 22:50
PROVIDERS: ADMIT Family Medicine; ATTEND Family Medicine
DX: G89.3 Neoplasm related pain (acute) (chronic) (principal); C79.31 Secondary malignant neoplasm of brain; C34.12 Malignant neoplasm of upper lobe, left bronchus or lung; J44.1 Chronic obstructive pulmonary disease with (acute) exacerbation; N39.0 Urinary tract infection, site not specified; E86.0 Dehydration; D63.0 Anemia in neoplastic disease; M19.90 Unspecified osteoarthritis, unspecified site; F17.210 Nicotine dependence, cigarettes, uncomplicated; K59.03 Drug induced constipation; T40.605A Adverse effect of unspecified narcotics, initial encounter; F41.9 Anxiety disorder, unspecified; R32 Unspecified urinary incontinence; M54.2 Cervicalgia; Z80.0 Family history of malignant neoplasm of digestive organs; Z79.891 Long term (current) use of opiate analgesic; Z92.3 Personal history of irradiation; Z92.21 Personal history of antineoplastic chemotherapy; Z80.1 Family history of malignant neoplasm of trachea, bronchus and lung; Z79.899 Other long term (current) drug therapy; Z87.19 Personal history of other diseases of the digestive system
CPT/HCPCS: 36415; 71020; 72156; 80048; 80053; 81001; 82550; 82553; 83036; 83605; 83735; 84100; 84484; 85025; 85610; 85730; 87040; 87070; 87086; 87205; 93005; 94640; 94760; 96361; 96374; 96375; 96376; 99285

== ENCOUNTER → 2016-11-08 | Outpatient (CLI) | payer OTHER ==
--- NOTE | 2016-11-09 09:22 | MR ---
EXAMINATION TYPE: MR brain wo/w con DATE OF EXAM: 11/08/2016 COMPARISON: Outside brain MRI August 30, 2016. HISTORY: Brain mets progress study after treatment. History of lung cancer. TECHNIQUE: Multiplanar, multisequence images of the brain and brainstem is performed without and with IV contras t, utilizing 7.5 mL intravenous Gadavist . FINDINGS: Diffusion weighted images demonstrate no evidence of a recent infarct or other diffusion ab normality. There is no worrisome extra-axial fluid collection. Ventricles and sulci are stable and w ithin normal limits in size for patient's age. There are focal and confluent areas of T2 hyperintensi ty seen throughout the deep and periventricular white matter redemonstrated including at level of the inferior colette. Findings appear slightly more prominent on current study but this may be technical. F indings are somewhat more out of proportion than expected for product of chronic small vessel ischemi c change. Midline structures demonstrate normal morphology. The craniocervical junction appears within normal limits. Post contrast images demonstrate persistent rim-enhancing 6 by 3 mm lesion right frontal par ietal subcortical level on axial image 133 unchanged from prior study. Just superior to this there is new enhancing 4 x 4 x 6 millimeter lesion on axial image 140 and coronal image 38 also confirmed on sagittal image 58 with surrounding edema. The dural venous sinuses appear patent. The globes are int act bilaterally. There is mild mucosal thickening in inferior maxillary sinuses otherwise paranasal s inuses are clear. IMPRESSION: Right frontal parietal junction ring-enhancing lesion is stable. There is however new sec ond lesion identified superior to this. Overall findings are consistent with neoplastic progression.
== END | disposition home or self-care (01) ==
LOC: RADMRIMAIN 09:07
PROVIDERS: ATTEND Radiology Radiation Oncology
DX: C79.31 Secondary malignant neoplasm of brain (principal)
CPT/HCPCS: 70553; A9581

== ENCOUNTER → 2016-12-16 | Outpatient (CLI) | payer OTHER ==
--- NOTE | 2016-12-16 15:42 | CT ---
EXAMINATION TYPE: CT ChestAbdPelvis w con DATE OF EXAM: 12/16/2016 COMPARISON: NONE HISTORY: 56 year-old male history of lung CA. Currently receiving immunotherapy. TECHNIQUE: Contiguous axial scanning of the chest, abdomen, and pelvis performed with IV Contrast, pa tient injected with 100 mL of Omnipaque 300. Delayed images through the kidneys were obtained. Montero l/sagittal reconstructions performed. CT DLP: 498.2 mGycm Automated exposure control for dose reduction was used. FINDINGS: CHEST: Right anterior chest wall injection port with catheter tip in the distal SVC. 1.7 cm round mass in the upper inner quadrant left breast soft tissues. Heart is normal size without pericardial effusion. Aorta normal caliber with conventional arch vessel branching anatomy. There is mediastinal lymphadenopathy measuring up to 1.6 cm in the right paratracheal region and a la rge courtney mass in the AP window measuring 5.0 x 3.3 cm with contiguous soft tissue extending in the l eft perihilar region encasing the distal left mainstem bronchus and proximal lobar branches which are slightly irregular and attenuated. Subcarinal lymph node measures 1 cm but has heterogeneous density which makes it suspicious. Some patchy infiltrate noted in the right middle lobe and also the left lung base. Some additional tr ee-in-bud infiltrates in the left greater than right superior segment lower lobes. There is a mass in the left upper lobe measuring 2.8 x 2.5 cm with some adjacent strandy atelectasis and small internal cavitation. A couple 4 mm lingular pulmonary nodules, axial image 29. Nonspecific 3 mm pulmonary nodule right mid lung along the minor fissure, axial image 33. ABDOMEN: Tiny hiatal hernia. There are too numerous to count hypodense lesions within the liver. Some of these are suspected to re present cysts while others are suspected to represent metastatic disease, largest measuring up to 1.8 cm. Portal venous system is patent. No biliary ductal dilatation. Gallbladder is hydropic at 4.6 cm wide. No surrounding inflammatory change. Adrenal glands, spleen, and pancreas show no gross abnormality. There are 2 lesions within the right kidney measuring up to 3.1 cm. Margins are ill-defined so these do not clearly represent cysts. There is one lesion in the left kidney measuring 1.3 cm. No dilated small bowel, free fluid, or free air. There is a 1.1 cm nodule along the anterior margin of the transverse colon, axial image 67 that could represent a diverticulum or omental implant. Otherwise, no mesenteric or retroperitoneal lymphadenop athy seen. Mild diffuse colonic wall thickening may be due to underdistention. Wall thickening is more moderate near the hepatic flexure, axial image 73, coronal image 38. No pericolonic inflammatory change seen. Pelvis: Bladder is urine distended. No abnormal fluid collection in the pelvis or pelvic lymphadenopathy seen . Bones: Mild diffuse anasarca type changes. Prior intramedullary nailing of the left femur. Sclerotic focus i n the left anterior acetabulum probably a bone island. Degenerative changes lower lumbar spine. There is a 1.6 cm lucent lesion within the right posterior L2 vertebral body which is indeterminate. As it is well-defined, somewhat sclerotically marginated, and possibly with internal stippling, this may r epresent a hemangioma. Possibility of metastatic disease considered less likely but not entirely excl uded. Otherwise, no osseous destructive process. IMPRESSION: 1. LEFT UPPER LOBE MASS MEASURING 2.8 CM WITH SMALL INTERNAL CAVITATION SUGGESTIVE OF NEOPLASM. 2. CONGLOMERATE LEFT HILAR LYMPHADENOPATHY CONTIGUOUS WITH THE AP WINDOW MEASURING UP TO 5.0 CM. 3. A FEW 4 MM AND SMALLER PULMONARY NODULES ARE NONSPECIFIC BUT COULD REPRESENT METASTATIC DISEASE WELL. 4. TOO NUMEROUS TO COUNT HEPATIC LESIONS MEASURING UP TO 1.8 CM. SUSPECT THAT SOME OF THESE REPRESENT CYSTS. HOWEVER, MANY LIKELY REPRESENT METASTATIC DISEASE WELL. 5. THERE ARE 2 RIGHT RENAL LESIONS AND ONE LESION IN THE LEFT KIDNEY MEASURING UP TO 3.1 AND 1.3 CM, RESPECTIVELY. THE MARGINS ARE SOMEWHAT ILL-DEFINED, ATYPICAL OF CYSTS. RECOMMEND RENAL ULTRASOUND TO ATTEMPT FURTHER CHARACTERIZATION. RENAL PARENCHYMAL METASTASES NOT EXCLUDED AT THIS TIME. 6. A 1.7 CM SOFT TISSUE METASTASIS TO THE LEFT BREAST. 7. A 1.1 CM NODULE ALONG THE OMENTUM COULD REPRESENT AN IMPACTED DIVERTICULUM OF THE TRANSVERSE COLON OR AN OMENTAL IMPLANT. 8. AN INDETERMINATE LYTIC LESION WITHIN THE L2 VERTEBRAL BODY. GIVEN THIN PERIPHERAL SCLEROSIS, A CHR ONIC, INDOLENT PROCESS SUSPECTED SUCH A HEMANGIOMA RATHER THAN OSSEOUS METASTASIS. 9. MILD DIFFUSE COLONIC WALL THICKENING MORE MODERATE AT THE HEPATIC FLEXURE. CORRELATE FOR POSSIBLE COLITIS. 10. HYDROPIC GALLBLADDER MAY RELATE TO FASTING STATE. IF RIGHT UPPER QUADRANT PAIN OR CONCERN FOR EAR LY ACUTE CHOLECYSTITIS, ULTRASOUND OR HIDA SCAN CAN BE PERFORMED. 10. TREE-IN-BUD AND PATCHY INFILTRATES IN BOTH MID TO LOWER LUNGS. CORRELATE FOR INFECTIOUS/INFLAMMAT ORY CAUSES WITH ASPIRATION PNEUMONITIS NOT EXCLUDED FROM THE DIFFERENTIAL.
== END | disposition home or self-care (01) ==
LOC: RADPROMAIN 13:26
PROVIDERS: ATTEND Internal Medicine Hematology & Oncology
DX: C34.12 Malignant neoplasm of upper lobe, left bronchus or lung (principal); R59.0 Localized enlarged lymph nodes; K76.89 Other specified diseases of liver; N28.89 Other specified disorders of kidney and ureter; C79.81 Secondary malignant neoplasm of breast; K66.8 Other specified disorders of peritoneum; K63.89 Other specified diseases of intestine; R91.8 Other nonspecific abnormal finding of lung field
CPT/HCPCS: 71260; 74177; Q9967; J1642